=== PATIENT | female | born 1965 | race Hispanic/Latino ===

== ENCOUNTER 2020-09-13 17:19 | Observation (INO) | payer BC ==
[~2020-09-13] VITALS: Ht 152.4 cm; Wt 77.3 kg
[~2020-09-13 17:19] MED LIST: DEPO-MEDROL80 MG/ML IM; FERROUS SULF325 M1; FLEXERIL PO; FLEXERIL10 MG PO; IBUPROFEN600 MG PO; INDOCIN25 MG PO; KETOROLAC60 MG/2 ML IJ; NAPROSYN500 MG PO; PERCOCET 5/325M1 TAB PO; TIZANIDINE4 MG PO
[2020-09-13 17:37] LABS: HEMATOCRIT 40.5 % (37.0-47.0); HEMOGLOBIN 13.1 g/dl (12.0-16.0); IMMATURE GRANULOCYTES 0.8 % (0.0-5.0); MEAN CELL VOLUME 82.7 fL CALC (80.0-100.0); MEAN CORPUSCULAR HGB 26.7 pG CALC (26.0-32.0); MEAN CORPUSCULAR HGB CONC 32.3 g/dL CAL (32.0-36.0); NEUT# 10.77 thou/uL (2.00-7.15); RED BLOOD COUNT 4.9 mill/uL (4.20-5.60); RED CELL DISTRI WIDTH 15.2 % (11.5-15.5)
[2020-09-13 17:53] LABS: ALBUMIN 4.6 g/dL (3.2-5.0); ALKALINE PHOSPHATASE 176 u/l (38-126); BILIRUBIN, TOTAL 0.7 mg/dL (0.0-1.4); BUN 13 mg/dL (7-17); BUN/CREATININE RATIO 23 (12-20 (CALC)); CHLORIDE 105 mmol/l (95-108); CREATININE 0.6 mg/dL (0.5-1.0); GFR > 60 ML/MIN (>=60 (CALC)); GFR FOR AFR.AMER. > 60 ML/MIN (>=60 (CALC)); LIPASE 108 u/l (23-300); SODIUM 140 mmol/l (137-146); TOTAL PROTEIN 8.5 g/dL (6.3-8.2)
[2020-09-13 18:00] LABS: ANION GAP 21 (6-22 (CALC)); CARBON DIOXIDE 17 mmol/l (22-30); POTASSIUM 3.1 mmol/l (3.5-5.1); SGOT/AST 90 u/l (14-36)
[2020-09-13 18:55] LABS: URINE BILIRUBIN - DIPSTICK NEGATIVE (NEGATIVE); URINE BLOOD DIPSTICK NEGATIVE (NEGATIVE); URINE COLOR YELLOW; URINE GLUCOSE - DIPSTICK NEGATIVE (NEGATIVE); URINE KETONE NEGATIVE (NEGATIVE); URINE LEUK ESTERASE NEGATIVE (NEGATIVE); URINE NITRITE - DIPSTICK NEGATIVE (Negative); URINE PH 6.5 (4.5-8.0); URINE PROTEIN - DIPSTICK 30 mg/dL (NEG-TRACE); URINE SPECIFIC GRAVITY 1.015; URINE UROBILINOGEN - DIPSTICK 0.2 E.U./dL (0.2)
[2020-09-13 19:03] LABS: URINE RBC 0-2 RBC/hpf (0-5); URINE SQUAMOUS EPITHELIAL CELL FEW EPI/hpf (0-FEW); URINE WBC 0-2 WBC/hpf (0-5)
[2020-09-13 21:25] VITALS: BP 105/57
[2020-09-13 23:50] VITALS: BP 133/78
[2020-09-14 04:00] VITALS: BP 121/64
[2020-09-14 06:07] LABS: HEMATOCRIT 36.1 % (37.0-47.0); HEMOGLOBIN 11.8 g/dl (12.0-16.0); IMMATURE GRANULOCYTES 0.7 % (0.0-5.0); MEAN CORPUSCULAR HGB 27.4 pG CALC (26.0-32.0); MEAN CORPUSCULAR HGB CONC 32.7 g/dL CAL (32.0-36.0); NEUT# 10.21 thou/uL (2.00-7.15); RED BLOOD COUNT 4.3 mill/uL (4.20-5.60); RED CELL DISTRI WIDTH 15.7 % (11.5-15.5)
[2020-09-14 06:32] LABS: ALKALINE PHOSPHATASE 123 u/l (38-126); BILIRUBIN, TOTAL 0.7 mg/dL (0.0-1.4); BUN 6 mg/dL (7-17); BUN/CREATININE RATIO 12 (12-20 (CALC)); C-REACTIVE PROTEIN 1.3 mg/dL (0-0.9); CHLORIDE 108 mmol/l (95-108); CREATININE 0.4 mg/dL (0.5-1.0); GFR > 60 ML/MIN (>=60 (CALC)); GFR FOR AFR.AMER. > 60 ML/MIN (>=60 (CALC)); SODIUM 138 mmol/l (137-146)
[2020-09-14 06:34] LABS: ALBUMIN 3.6 g/dL (3.2-5.0); ANION GAP 13 (6-22 (CALC)); CARBON DIOXIDE 22 mmol/l (22-30); POTASSIUM 4.7 mmol/l (3.5-5.1); SGOT/AST 358 u/l (14-36); TOTAL PROTEIN 6.7 g/dL (6.3-8.2)
[2020-09-14 07:54] VITALS: BP 120/75
[2020-09-14 11:39] VITALS: BP 137/78
[2020-09-14 16:22] VITALS: BP 132/74
[2020-09-14 19:00] VITALS: BP 117/62
[2020-09-15] VITALS: BP 112/64
[2020-09-15 04:00] VITALS: BP 121/67
[2020-09-15 05:21] LABS: HEMATOCRIT 33.5 % (37.0-47.0); HEMOGLOBIN 10.9 g/dl (12.0-16.0); IMMATURE GRANULOCYTES 0.8 % (0.0-5.0); MEAN CELL VOLUME 84.2 fL CALC (80.0-100.0); MEAN CORPUSCULAR HGB 27.4 pG CALC (26.0-32.0); MEAN CORPUSCULAR HGB CONC 32.5 g/dL CAL (32.0-36.0); NEUT# 11.89 thou/uL (2.00-7.15); RED BLOOD COUNT 3.98 mill/uL (4.20-5.60); RED CELL DISTRI WIDTH 15.6 % (11.5-15.5)
[2020-09-15 05:58] LABS: ALBUMIN 3.2 g/dL (3.2-5.0); ALKALINE PHOSPHATASE 108 u/l (38-126); ANION GAP 11 (6-22 (CALC)); BILIRUBIN, TOTAL 0.6 mg/dL (0.0-1.4); BUN 19 mg/dL (7-17); BUN/CREATININE RATIO 34 (12-20 (CALC)); C-REACTIVE PROTEIN 1.3 mg/dL (0-0.9); CARBON DIOXIDE 23 mmol/l (22-30); CHLORIDE 108 mmol/l (95-108); CREATININE 0.6 mg/dL (0.5-1.0); GFR > 60 ML/MIN (>=60 (CALC)); GFR FOR AFR.AMER. > 60 ML/MIN (>=60 (CALC)); POTASSIUM 4.1 mmol/l (3.5-5.1); SGOT/AST 175 u/l (14-36); SODIUM 138 mmol/l (137-146); TOTAL PROTEIN 6.3 g/dL (6.3-8.2)
[2020-09-15 07:42] VITALS: BP 137/78
[2020-09-15] MEDS ORDERED: ZITHROMAX500 MG PO (10:41)
[2020-09-15] MEDS ORDERED: DEXAMETHASON6 MG PO (10:42)
[2020-09-15] MEDS ORDERED: ROBITUSSIN AC10 ML PO (10:42)
[2020-09-15 10:55] VITALS: BP 136/76
[2020-09-15] MEDS ORDERED: ASPIRIN ADULT325 MG PO (12:14)
== END 2020-09-15 12:01 | disposition home or self-care (01) | DRG 871 ==
LOC: ED 17:19 → ED-I 20:22 → ED 20:34 → MS2 20:34
PROVIDERS: Family Medicine; Physician Assistant; ADMIT Internal Medicine; ATTEND Internal Medicine
DX: A41.89 Other specified sepsis (principal); U07.1 COVID-19; J12.82 Pneumonia due to coronavirus disease 2019
CPT/HCPCS: G0378; J1650; Q9967

== ENCOUNTER 2022-02-09 08:01 | Day surgery (SDC) | payer BC ==
[~2022-02-09] VITALS: Ht 152.4 cm; Wt 77.1 kg
[~2022-02-09 08:01] MED LIST changes: +ASPIRIN ADULT325 MG PO; +DEXAMETHASON6 MG PO; +PREMARIN1.25 MG PO; +ROBITUSSIN AC10 ML PO; +ZITHROMAX500 MG PO
[2022-02-09 11:02] VITALS: BP 123/74
== END 2022-02-09 11:17 | disposition home or self-care (01) | DRG 951 ==
LOC: ENDO 08:01
PROVIDERS: ATTEND Surgery
PROC: 0DJD8ZZ Inspection of Lower Intestinal Tract, Via Natural or Artificial Opening Endoscopic (ICD-10-PCS; principal; 2022-02-09)
DX: Z12.11 Encounter for screening for malignant neoplasm of colon (principal)